=== PATIENT | female | born 1960 | race Caucasian/White ===

== ENCOUNTER 2020-04-28 08:40 | Outpatient (CLI) | payer SELFPAY | END 2020-04-28 08:41 | disposition home or self-care (01) | LOC: CHSLAB 08:45 | PROVIDERS: PCP Family Medicine | DX: E89.0 Postprocedural hypothyroidism (principal) | CPT/HCPCS: 36415; 84443 ==

== ENCOUNTER 2021-04-21 07:40 | Outpatient (CLI) | payer BC, SELFPAY ==
[2021-04-21 08:49] LABS: Thyroid Stimulating Hormone Reflex 2.76 u/IU/mL (0.36-3.74)
== END 2021-04-21 07:41 | disposition home or self-care (01) ==
PROVIDERS: PCP Family Medicine
DX: E89.0 Postprocedural hypothyroidism (principal)
CPT/HCPCS: 36415; 84443

== ENCOUNTER 2022-04-21 07:36 | Outpatient (CLI) | payer BC, SELFPAY ==
[2022-04-21 08:13] LABS: Thyroid Stimulating Hormone Reflex 2.19 u/IU/mL (0.36-3.74)
== END 2022-04-21 07:37 | disposition home or self-care (01) ==
LOC: CHSLAB 07:40
PROVIDERS: PCP Family Medicine
DX: E89.0 Postprocedural hypothyroidism (principal)
CPT/HCPCS: 36415; 84443

== ENCOUNTER 2023-04-10 07:19 | Outpatient (CLI) | payer BC, SELFPAY ==
[2023-04-10 08:34] LABS: Free T4 Free Thyroxine 0.99 ng/dL (0.76-1.46)
== END 2023-04-10 07:20 | disposition home or self-care (01) ==
LOC: CHSLAB 07:27
PROVIDERS: PCP Family Medicine
DX: E89.0 Postprocedural hypothyroidism (principal)
CPT/HCPCS: 36415; 84439; 84443

== ENCOUNTER 2023-05-23 07:08 | Outpatient (CLI) | payer BC, SELFPAY ==
[2023-05-23 08:23] LABS: Free T4 Free Thyroxine 1.13 ng/dL (0.76-1.46)
== END 2023-05-23 07:09 | disposition home or self-care (01) ==
LOC: CHSLAB 07:11
PROVIDERS: PCP Family Medicine
DX: E89.0 Postprocedural hypothyroidism (principal)
CPT/HCPCS: 36415; 84439; 84443

== ENCOUNTER 2024-05-15 07:13 | Outpatient (CLI) | payer OTHER, SELFPAY ==
[2024-05-15 08:28] LABS: Free T4 Free Thyroxine 1.11 ng/dL (0.76-1.46); Thyroid Stimulating Hormone 0.42 uIU/mL (0.36-3.74)
== END 2024-05-15 07:14 | disposition home or self-care (01) ==
LOC: CHSLAB 07:18
PROVIDERS: PCP Family Medicine
DX: E89.0 Postprocedural hypothyroidism (principal)
CPT/HCPCS: 36415; 84439; 84443

== ENCOUNTER 2025-05-22 07:12 | Outpatient (CLI) | payer OTHER, SELFPAY ==
--- OUTSIDE RECORDS SUMMARY | 2025-05-22 07:21 | XMS_ITS | Clinical Summary ---
Author Organization [facility] Address [facility] [place] [address] Care Team Providers Care Resident Care Supervisor Name Role Phone Unavailable Primary Care Provider Unavailabl e Social History Tobacco Use Types Packs/Day Years Used Date Smoking Tobacco: Never Assessed Comments Unknown Sex and Gender Information Value Date Recorded Sex Assigned at Not on file Legal Sex Female 10:53 PM [employer] Gender Identity Not on file Sexual Orientation Not on file Plan of Treatment Health Maintenance Due Date Last Done Comments Cervical Cancer Screening Pa p Smear (Age 30 to 64) Every 3 Years 1960 Colorectal Cancer Screening Colonoscopy (10 Years) 1960 Annual Physical 1963 Hepatitis C 1978 DTaP, Tdap and Td Vaccines ( 1 - Tdap) 1979 Cervical Cancer Screening Pa p with HPV Testing (Age 30 to 64) Every 5 Years 1990 Cervical Cancer Screening with HPV 1990 Mammogram Screening 2000 Pneumococcal Vaccine: 50+ Ye ars (1 of 1 - PCV) 2010 Zoster Vaccines (1 of 2) 2010 COVID-19 Vaccine ( - 2023-2 5 season) 2024 RSV Immunization or 60+ Years (1 - 1-dose 75+ series) 2035 Meningococcal B Vaccine Aged Out No l onger eligible based on patient's age to complete this topic Meningococcal Vaccine Aged Out No snow courtney eligible based on patient's age to complete this topic RSV Immunizations Under 20 Months Aged Out No longer eligible based on patient's age to complete this topic
[2025-05-22 08:48] LABS: Free T4 Free Thyroxine 1.12 ng/dL (0.78-2.19)
[2025-05-22 09:02] LABS: Thyroid Stimulating Hormone 2.460 uIU/mL (0.465-4.680)
== END 2025-05-22 07:13 | disposition home or self-care (01) ==
PROVIDERS: PCP Family Medicine
DX: E89.0 Postprocedural hypothyroidism (principal)
CPT/HCPCS: 36415; 84439; 84443